=== PATIENT | female | born 1955 | race Caucasian/White ===

== ENCOUNTER 2017-09-10 17:16 | Emergency (ER) | payer MEDICAID ==
[~2017-09-10] VITALS: Ht 157.5 cm; Wt 70.5 kg
[2017-09-10] MEDS ORDERED: ondansetron 4mg rapidly disintigrating tab PO ONE (17:35)
[2017-09-10] MEDS ORDERED: HYDROcodone/acetaminophen 10/325mg tab PO ONE (17:35)
[2017-09-10] MEDS ORDERED: ketorolac trometh. 30mg/ml inj. IV ONE (17:50)
[2017-09-10] MEDS ORDERED: IBUP-1985 PO (19:06)
[2017-09-10] MEDS ORDERED: PANT-47 PO (19:06)
[2017-09-10] MEDS ORDERED: HYDR-569 PO (19:06)
[2017-09-10 19:19] VITALS: BP 132/74
== END 2017-09-10 19:29 | disposition home or self-care (01) ==
LOC: ER 17:16
DX: S20.211A Contusion of right front wall of thorax, initial encounter (principal); S40.011A Contusion of right shoulder, initial encounter; Z88.2 Allergy status to sulfonamides; Z79.899 Other long term (current) drug therapy; W18.2XXA Fall in (into) shower or empty bathtub, initial encounter; Y93.89 Activity, other specified; Y92.89 Other specified places as the place of occurrence of the external cause; Y99.8 Other external cause status
CPT/HCPCS: 71045; 71100; 72070; 72100; 73030; 96374; 99284; J1885

== ENCOUNTER 2018-07-01 07:03 | Emergency (ER) | payer MEDICARE, MEDICAID ==
[~2018-07-01] VITALS: Ht 157.5 cm; Wt 74.0 kg
[~2018-07-01 07:03] MED LIST: HYDR-4383 PO; IBUP-1985 PO; PANT-47 PO
[2018-07-01] MEDS ORDERED: ondansetron/PF 4mg/2ml inj IV ONE (07:40)
[2018-07-01] MEDS ORDERED: normal saline 1000ML IV soln IVB ONE (07:40)
[2018-07-01 07:47] LABS: BASOPHILS # (AUTO) 0.1 X10'3 (0-0.2); BASOPHILS % (AUTO) 0.7 % (0-1); EOSINOPHILS % (AUTO) 0.4 % (0-6); HEMATOCRIT 46.2 % (35.0-45.0); HEMOGLOBIN 15.6 g/dl (12.0-16.0); LYMPHOCYTES # (AUTO) 1.5 X10'3 (1.1-4.8); MEAN CORPUSCULAR HGB CONC 33.7 % (33.0-36.5); MEAN CORPUSCULAR VOLUME 95.1 FL (78-98); MEAN PLATELET VOLUME 9.1 FL (7.4-10.4); MONOCYTES # (AUTO) 0.3 X10'3 (0-0.9); MONOCYTES % (AUTO) 2.6 % (2-12); NEUTROPHILS # (AUTO) 8.4 X10'3 (1.8-7.7); NEUTROPHILS % (AUTO) 81.3 % (42-75); PLATELET COUNT 293 X10'3 (140-440); RED BLOOD COUNT 4.86 X10'6 (4.20-5.60); RED CELL DISTRIBUTION WIDTH 14.1 % (11.5-14.5); WHITE BLOOD COUNT 10.3 X10'3 (4.5-11.0)
[2018-07-01 07:53] LABS: URINE HCG NEGATIVE (NEG)
[2018-07-01 08:14] LABS: PROTHROMBIN TIME 10.3 SECONDS (9.0-12.0)
[2018-07-01 08:21] LABS: CLARITY,URINE CLOUDY (Clear); COLOR,URINE YELLOW (Yellow); GLUCOSE, URINE NEGATIVE (Neg); KETONES,URINE TRACE mg/dl (Neg); LEUKOCYTE ESTERASE ,URINE NEGATIVE (Neg); NITRITES, URINE NEGATIVE (Neg); OCCULT BLOOD,URINE NEGATIVE (Neg); PH,URINE 5.5 (4.8-8.0); PROTEIN,URINE TRACE mg/dl (Neg); UROBILINOGEN,URINE 0.2 E.U/dL (0.2-1.0)
[2018-07-01 08:31] LABS: UA COLLECTION TYPE CLN CATCH MIDSTREAM
[2018-07-01 08:32] LABS: AMORPHOUS URATES 3+; BACTERIA,URINE NONE SEEN /HPF (Neg); MUCUS STRANDS NONE SEEN /LPF (Neg); RBC,URINE NONE SEEN /HPF (0-2); SQUAMOUS EPITHELIAL CELL,UR FEW /LPF (FEW); WBC,URINE NONE SEEN /HPF (0-4)
[2018-07-01 08:33] LABS: CAL OXALATE CRYSTALS FEW /HPF (NEGATIVE)
[2018-07-01] MEDS ORDERED: simethicone 125mg capsule PO SCH (09:30)
[2018-07-01 09:44] LABS: ALANINE AMINOTRANSFERASE 29 U/L (12-78); ALKALINE PHOSPHATASE 128 IU/L (46-116); ANION GAP 12 (8-16); ASPARTATE AMINO TRANSFERASE 15 U/L (10-37); BILIRUBIN,TOTAL 0.7 MG/DL (0.1-1.0); BLOOD UREA NITROGEN 21 MG/DL (7-18); BUN/CREATININE RATIO 23.6 (6.6-38.0); CALCIUM 9.6 MG/DL (8.5-10.1); CHLORIDE 103 MMOL/L (99-107); CREATININE 0.89 MG/DL (0.40-0.90); SODIUM 140 MMOL/L (135-145); TOTAL CARBON DIOXIDE 24.7 MMOL/L (24-32); TOTAL PROTEIN 8.2 G/DL (6.4-8.2); eGFR 64 ML/MIN
[2018-07-01 09:47] LABS: LIPASE 107 U/L (73-393); TROPONIN I < 0.04 NG/ML (0.0-0.05)
[2018-07-01 09:48] LABS: GLUCOSE 150 MG/DL (70-104)
[2018-07-01 10:19] VITALS: BP 121/75
== END 2018-07-01 12:29 | disposition home or self-care (01) ==
LOC: ER 07:04
DX: K56.7 Ileus, unspecified (principal); R11.2 Nausea with vomiting, unspecified; Z90.89 Acquired absence of other organs; Z98.890 Other specified postprocedural states; Z88.2 Allergy status to sulfonamides; Z79.899 Other long term (current) drug therapy
CPT/HCPCS: 36415; 74018; 74176; 80053; 81001; 81025; 83690; 84484; 85025; 85610; 93005; 96361; 96374; 99284; J2405; J7030